=== PATIENT | female | born 1950 | race African-American/Black ===

== ENCOUNTER 2020-07-03 14:19 | Emergency (ER) | payer MEDICAID, MEDICARE ==
[~2020-07-03] VITALS: Ht 165.1 cm; Wt 73.0 kg
[~2020-07-03 14:19] MED LIST: ASPI-1497 PO; ATOR10TA69 PO; BISA-81 PO; CALC667C4 PO; DIVAL250 PO; MULT-1146 PO; ZYDS20 PO
[2020-07-03 16:34] LABS: CLARITY URINE CLEAR (CLEAR); COLOR URINE YELLOW (YELLOW); KETONES URINE NEGATIVE (NEGATIVE); LEUKOCYTE ESTERASE URINE NEGATIVE (NEGATIVE); NITRITE URINE NEGATIVE (NEGATIVE); OCCULT BLOOD URINE NEGATIVE (NEGATIVE); PH URINE 5.5 (4.5-8.0); PROTEIN URINE NEGATIVE (NEGATIVE); SPECIFIC GRAVITY URINE 1.011 (1.005-1.030)
[2020-07-03] MEDS ORDERED: LORAZEPAM 2MG/ML CPJ IM ONE (16:45)
[2020-07-03] MEDS ORDERED: HALOPERIDOL LACTATE 5MG/ML VIAL IM ONE (16:45)
[2020-07-03 17:31] LABS: *AMPHETAMINES SCREEN URINE NEGATIVE (NEGATIVE); *COCAINE SCREEN URINE NEGATIVE (NEGATIVE); CANNABINOID URINE SCREEN NEGATIVE (NEGATIVE); METHADONE URINE SCREEN NEGATIVE (NEGATIVE); OPIATES URINE SCREEN NEGATIVE (NEGATIVE); PHENCYCLIDINE URINE SCREEN NEGATIVE (NEGATIVE)
[2020-07-03 17:32] LABS: *BARBITURATES SCREEN URINE NEGATIVE (NEGATIVE); *BENZODIAZEPINES SCREEN URINE NEGATIVE (NEGATIVE)
[2020-07-03 18:39] LABS: BASOPHILS % 0.6 % (0.0-2.0); HEMATOCRIT. 38.7 % (36.0-48.0); HEMOGLOBIN. 12.2 g/dL (12.0-16.0); LYMPHOCYTES % 24.3 % (20.0-50.0); MEAN CORPUSCULAR VOLUME 75.6 fL (81.0-99.0); MEAN PLATELET VOLUME 9.7 fl (7.4-10.4); MONOCYTES % 5.2 % (2.0-8.0); NEUTROPHILS % 68.9 % (40.0-76.0); PLATELET 154 x1000/uL (130-400); RED BLOOD CELL COUNT 5.11 mill/uL (4.2-5.4); RED CELL DISTRIBUTION WIDTH 14.8 % (11.6-14.6)
[2020-07-03 18:45] LABS: CHLORIDE 104 mEq/L (98-107)
[2020-07-03 18:53] LABS: ETHANOL BLOOD < 10 mg/dL
[2020-07-03] MEDS ORDERED: OLANZAPINE 10MG TABLET PO SCH (19:00)
[2020-07-04] MEDS ORDERED: OLANZAPINE 5MG TABLET ODT PO ONE (09:15)
[2020-07-04] MEDS: OLANZAPINE 10MG TABLET PO SCH (22:32)
[2020-07-05] MEDS: OLANZAPINE 10MG TABLET PO SCH ×3 (03:05→18:50)
[2020-07-06] MEDS: OLANZAPINE 10MG TABLET PO SCH ×2 (09:00→17:00)
[2020-07-06 19:51] VITALS: BP 130/75
== END 2020-07-06 22:07 ==
LOC: ER 14:29
DX: F23 Brief psychotic disorder (principal); Z73.6 Limitation of activities due to disability; Z20.822 Contact with and (suspected) exposure to COVID-19; I49.9 Cardiac arrhythmia, unspecified; Z91.14 Patient's other noncompliance with medication regimen; Z75.1 Person awaiting admission to adequate facility elsewhere
CPT/HCPCS: 36415; 70450; 80053; 80305; 80320; 81003; 85025; 93005; 96372; 99285; C9803; J1630; J2060; U0003; G0480